=== PATIENT | male | born 1995 | race American Indian/Alaskan Native ===

== ENCOUNTER 2021-07-24 21:49 | Emergency (ER) | payer MEDICARE, MEDICAID ==
[2021-07-24] MEDS ORDERED: Cephalexin 500 MG Cap PO STA (22:25)
--- NOTE | 2021-07-24 22:27 | EDM.PDOC ---
ED HPI GENERAL MEDICAL PROBLEM - General Chief Complaint: General Time Seen by Provider: 07/24/21 22:00 Source of Information: Reports: Patient History Limitations: Reports: No Limitations - History of Present Illness INITIAL COMMENTS - FREE TEXT/NARRATIVE: Patient presented to the ED because of swelling, redness, and pain over the shaft of his penis. There is no associated fever, chills, or penile discharge. No urinary symptoms. - Related Data Allergies Allergy/AdvReac Type Severity Reaction Status Date / Time No Known Allergies Allergy Verified 07/24/21 22:15 Home Meds: Home Meds cephALEXin [Keflex] 500 mg PO TID #30 cap 07/24/21 [Rx] ED ROS GENERAL - Review of Systems Review Of Systems: See Below Constitutional: Reports: No Symptoms HEENT: Reports: No Symptoms Respiratory: Reports: No Symptoms Cardiovascular: Reports: No Symptoms Endocrine: Reports: No Symptoms GI/Abdominal: Reports: No Symptoms : Reports: Other (penile pain) Musculoskeletal: Reports: No Symptoms Skin: Reports: No Symptoms Neurological: Reports: No Symptoms Psychiatric: Reports: No Symptoms ED EXAM, GENERAL - Physical Exam Exam: See Below Exam Limited By: No Limitations General Appearance: Alert, No Apparent Distress Ears: Normal External Exam, Normal Canal Nose: Normal Inspection, Normal Mucosa, No Blood Throat/Mouth: Normal Inspection, Normal Lips, Normal Teeth, Normal Oropharynx, Normal Voice Head: Atraumatic, Normocephalic Neck: Normal Inspection, Supple, Full Range of Motion Respiratory/Chest: No Respiratory Distress, Lungs Clear, Normal Breath Sounds, No Accessory Muscle Use, Chest Non-Tender Cardiovascular: Normal Peripheral Pulses, Regular Rate, Rhythm, No Edema, No Gallop, No JVD, No Murmur GI/Abdominal: Normal Bowel Sounds, Soft, Non-Tender, No Organomegaly, No Distention, No Abnormal Bruit (Male) Exam: Other (swelling and erythema penile shaft) Back Exam: Normal Inspection Extremities: Normal Inspection Course - Vital Signs Text/Narrative:: Keflex 500 mg PO x1 Last Recorded V/S: Last Vital Signs Temp 36.8 C 07/24/21 22:00 Pulse 73 07/24/21 22:00 Resp 18 07/24/21 22:00 BP 164/100 H 07/24/21 22:00 Pulse Ox 94 L 07/24/21 22:00 - Orders/Labs/Meds Meds: Medications Discontinued Medications Generic Name Dose Route Start Last Admin Trade Name Emir PRN Reason Stop Dose Admin Cephalexin 500 mg 07/24/21 22:25 Cephalexin 500 Mg Cap PO 07/24/21 22:26 NOW STA Departure - Departure Time of Disposition: 22:30 Disposition: Home, Self-Care 01 Condition: Good Clinical Impression: Cellulitis - Discharge Information Prescriptions: cephALEXin [Keflex] 500 mg PO TID #30 cap Instructions: Cellulitis, Adult, [id number] Forms: ED Department Discharge Additional Instructions: Please read discharge instructions on cellulitis Take ibuprofen 800 mg with tylenol 1000 mg every 8 hours as needed for pain Keflex 500 mg 3 times daily for 10 days Follow up as needed Sepsis Event Note (ED) - Focused Exam Vital Signs: Vital Signs Temp Pulse Resp BP Pulse Ox 07/24/21 22:00 36.8 C 73 18 164/100 H 94 L
== END 2021-07-24 22:35 | disposition home or self-care (01) ==
LOC: FB.ED 21:49
DX: N48.22 Cellulitis of corpus cavernosum and penis (principal)
CPT/HCPCS: 99283; A9270

== ENCOUNTER 2021-12-02 14:39 | Emergency (ER) | payer MEDICARE, MEDICAID | END 2021-12-02 15:40 | disposition home or self-care (01) | LOC: FB.ED 14:39 | DX: R21 Rash and other nonspecific skin eruption (principal); Z20.2 Contact with and (suspected) exposure to infections with a predominantly sexual mode of transmission; Z72.0 Tobacco use | CPT/HCPCS: 99282; 99283 ==